=== PATIENT | male | born 1970 | race Caucasian/White ===

== ENCOUNTER 2022-05-11 15:03 | Emergency (ER) | payer SELFPAY ==
[2022-05-11] MEDS ORDERED: LIDOCAINE 1% MPF 5 ML VIAL ONE (15:24)
--- NOTE | 2022-05-11 15:58 | EDPHYS ---
Physician Documentation [facility] Name: Saul Sanchez Age: 51 yrs Sex: Male : 1970 Arrival Date: 05/11/2022 Time: 15:09 Bed 4 Private MD: ED Physician Gabo Cortes HPI: 05/11 15:49 This 51 yrs old Male presents to ER via Ambulatory with complaints of Laceration. jmm 15:49 The patient or guardian reports injury, pain. Onset: The symptoms/episode jmm began/occurred acutely. This is a 51 year old male that presents to the ED with complaints of laceration to his left index finger. Crushed on alyx machine. Unsure on tetanus immunization status. 15:54 Modifying factors: The symptoms are alleviated by nothing, the symptoms are aggravated jmm by nothing. Historical: - Allergies: 15:23 No Known Allergies; ph - Immunization history:: Adult Immunizations unknown. - Social history:: Smoking status: Patient denies any tobacco usage or history of. ROS: 15:54 Constitutional: Negative for fever, chills, and weight loss, Cardiovascular: Negative jmm for chest pain, palpitations, and edema, Respiratory: Negative for shortness of breath, cough, wheezing, and pleuritic chest pain. 15:54 Skin: Positive for laceration(s). 15:54 All other systems are negative. Exam: 15:54 Constitutional: This is a well developed, well nourished patient who is awake, alert, jmm and in no acute distress. Head/Face: atraumatic. Eyes: EOMI, no conjunctival erythema appreciated ENT: Moist Mucus Membranes Neck: Trachea midline, Supple Chest/axilla: Normal chest wall appearance and motion. Cardiovascular: Regular rate and rhythm. No edema appreciated Respiratory: Normal respirations, no respiratory distress appreciated Abdomen/GI: Non distended, soft Back: Normal ROM 15:54 Musculoskeletal/extremity: FROM appreciated to the left 2nd phalanx against resistance. . 15:54 Skin: laceration noted to the base of the left index finger. 15:54 Neuro: Orientation: is normal, Mentation: is normal, Memory: is normal. 15:54 Psych: Behavior/mood is pleasant, cooperative, Affect is Vital Signs: 15:23 BP 147 / 94; Pulse 89; Resp 18; Temp 97.9; Pulse Ox 99% on R/A; ph Laceration: 15:54 Wound Repair of 2cm ( 0.8in ) subcutaneous laceration to dorsal aspect of proximal jmm phalanx of left index finger. Distal neuro/vascular/tendon intact. Anesthesia: Local anesthetic administered with 2 mls of 1% lidocaine. Wound prep: Simple cleansing with betadine by me. Skin closed with 4 5-0 Prolene using simple sutures and sterile technique. Patient tolerated well. MDM: 15:13 Patient medically screened. [facility] 15:54 Data reviewed: vital signs, nurses notes. Counseling: I had a detailed discussion with [facility] the patient and/or guardian regarding: the historical points, exam findings, and any diagnostic results supporting the discharge/admit diagnosis, the need for outpatient follow up, to return to the emergency department if symptoms worsen or persist or if there are any questions or concerns that arise at home. Refusal of service: The patient/guardian displays adequate decision making capability and despite a detailed discussion of alternatives, benefits, risks, and consequences refuses: all X-rays. 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 Exp: ph 02/03/2024. Lot #: [id number]. } Route: IM; Site: right deltoid; 16:03 Follow up: Response: No adverse reaction ph Disposition: 16:23 Co-signature as Attending Physician, Gabo Cortes MD I agree with the assessment and kdr plan of care. Disposition Summary: 05/11/22 15:57 Discharge Ordered Location: Home [facility] Condition: Stable [facility] Diagnosis - Finger Laceration [facility] Followup: [facility] - With: Private Physician - When: 10 - 14 days - Reason: Recheck today's complaints, Continuance of care, Staple/Suture removal, Re-evaluation by your physician Discharge Instructions: - Discharge Summary Sheet [facility] - Laceration Care, Adult [facility] Forms: - Medication Reconciliation Form [facility] - Thank You Letter [facility] - Antibiotic Education [facility] - Prescription Opioid Use [facility] Signatures: Gabo Cortes MD MD [facility] Akshat Smith PA PA jmm Hall, Patricia RN RN ph Corrections: (The following items were deleted from the chart) 15:55 15:49 This is a 51 year old male that presents to the ED with complaints of laceration jmm to his right . jmm
--- NOTE | 2022-05-11 15:58 | ER ---
Nurse's Notes [facility] Name: Saul Sanchez Age: 51 yrs Sex: Male : 1970 Arrival Date: 05/11/2022 Time: 15:09 Bed 4 Private MD: Diagnosis: Finger Laceration Presentation: 05/11 15:09 Chief complaint: Patient states: Laceration to left first finger from moving a jl7 [employer] machine. Coronavirus screen: At this time, the client does not indicate any symptoms associated with coronavirus-19. Ebola Screen: No symptoms or risks identified at this time. Complicating Factors: There are no complicating factors for this patient. Risk Assessment: Do you want to hurt yourself or someone else? Patient reports no desire to harm self or others. Onset of symptoms was May 11, 2022. 15:09 [facility] 15[facility] 15:23 Initial Sepsis Screen: Does the patient meet any 2 criteria? No. Patient's initial ph sepsis screen is negative. Does the patient have a suspected source of infection? No. Patient's initial sepsis screen is negative. Triage Assessment: 15:24 General: Appears in no apparent distress. comfortable, Behavior is calm, cooperative, ph appropriate for age. Pain: Denies pain. Neuro: Level of Consciousness is awake, alert, obeys commands, Oriented to person, place, time, situation. Cardiovascular: No deficits noted. Derm: Skin is healthy with good turgor, Skin is pink, warm \T\ dry. Injury Description: Laceration sustained to dorsal aspect of proximal phalanx of left index finger is clean, superficial, 0.5 to 2.5 cm long, not bleeding, was sustained 30-60 minutes ago. Historical: - Allergies: 15:23 No Known Allergies; ph - Immunization history:: Adult Immunizations unknown. - Social history:: Smoking status: Patient denies any tobacco usage or history of. Screenin:24 Abuse screen: Denies threats or abuse. Denies injuries from another. Nutritional ph screening: No deficits noted. Tuberculosis screening: No symptoms or risk factors identified. Fall Risk None identified. Assessment: 15:25 General: SEE TRIAGE ASSESSMENT. ph Vital Signs: 15:23 BP 147 / 94; Pulse 89; Resp 18; Temp 97.9; Pulse Ox 99% on R/A; ph ED Course: 15:09 Patient arrived in ED. jl7 15:11 [facility] Smith [facility] 15:11 Gabo Cortes MD is Attending Physician. [facility] 15:11 Triage completed. jl7 15:23 Argenis Yañez, RN is Primary Nurse. ph 15:24 Arm band placed on Patient placed in an exam room, on a stretcher. ph 15:25 Patient has correct armband on for positive identification. Bed in low position. Call light in reach. 15:25 Wound care: to laceration located on dorsal aspect of proximal phalanx of left index ph finger was cleaned with Hibiclens, irrigated with normal saline, Patient tolerated well. 15:57 Assist provider with laceration repair on dorsal aspect of proximal phalanx of left ph index finger that was 2.5 cm. or less using sutures. Set up tray. Performed by Akshat CHOI Patient tolerated well. Patient did not have IV access during this emergency room visit. Administered Medications: 15:40 Drug: Lidocaine (1 %) 20 ml Volume: 20 ml; Route: Infiltration; ph 15:59 Follow up: Response: No adverse reaction ph 15:58 Drug: Tetanus-Diphtheria Toxoid Adult 0.5 ml {Shellfish Check[employer]: [employer]. Exp: ph 02/03/2024. Lot #: [id number]. } Route: IM; Site: right deltoid; 16:03 Follow up: Response: No adverse reaction ph Medication: 15:58 Vaccine Information Statement (VIS) provided today. Questions and/or concerns ph addressed. VIS edition date: June 16, 2021. Outcome: 15:57 Discharge ordered by . [facility] 16:03 Discharged to home ambulatory, with significant other. ph 16:03 Condition: good 16:03 Discharge instructions given to patient, Instructed on discharge instructions, follow up and referral plans. Demonstrated understanding of instructions, follow-up care. 16:03 Patient left the ED. ph Signatures: Akshat Smith PA PA jmm Hall, Patricia, RN RN ph Aki Burr RN RN jl7 Corrections: (The following items were deleted from the chart) 15:14 15:09 Chief complaint: Patient states: Laceration to left ring finger from moving a jl7 [employer] machine jl7
[2022-05-11] MEDS ORDERED: TETANUS & DIPHTHERIA TOX,ADULT 0.5 ML VIAL ONE (16:01)
[2022-05-11 16:08] VITALS: BP 147/94; TEMP 97.9; O2SAT 99
== END 2022-05-11 16:03 | disposition home or self-care (01) ==
LOC: ER 15:03
PROC: 0JQK0ZZ Repair Left Hand Subcutaneous Tissue and Fascia, Open Approach (ICD-10-PCS; principal; 2022-05-11)
DX: S61.211A Laceration without foreign body of left index finger without damage to nail, initial encounter (principal); Z23 Encounter for immunization
CPT/HCPCS: 90471; 90714; 99284